=== PATIENT | female | born 1980 | race Caucasian/White ===

== ENCOUNTER → 2017-09-21 | Outpatient (REF) | payer MEDICARE ==
[2017-09-21 14:13] LABS: FOLATE 17.2 NG/ML; VITAMIN B12 LEVEL 490 PG/ML
[2017-09-21 14:21] LABS: ESTIMATED AVERAGE GLUCOSE 344 MG/DL (60-110); HEMOGLOBIN A1c 13.6 %
[2017-09-21 14:26] LABS: FREE T4 1.23 NG/DL (0.76-1.46); TOTAL PROTEIN 8.7 GM/DL (6.4-8.2)
[2017-09-25 14:13] LABS: ALBUMIN % 49.7 % (55.8-66.1); ALPHA-1-GLOBULIN % 4.3 % (2.9-4.9); BETA-1-GLOBULINS % 9.5 % (4.7-7.2); BETA-2-GLOBULINS % 10.9 % (3.2-6.5); GAMMA GLOBULIN % 12.6 % (11.1-18.8)
[2017-09-25 14:14] LABS: ALBUMIN 4.32 GM/DL (3.29-5.55); ALPHA-1-GLOBULINS 0.37 GM/DL (0.17-0.41); ALPHA-2-GLOBULINS 1.13 GM/DL (0.42-0.99); BETA-1-GLOBULINS 0.83 GM/DL (0.28-0.60); BETA-2-GLOBULINS 0.95 GM/DL (0.19-0.55)
[2017-09-26 00:07] LABS: METHYLMALONIC ACID 157 nmol/L (0-378); VITAMIN B1 LEVEL WHOLE BLOOD 169.9 nmol/L (66.5-200.0); VITAMIN B6,PYRIDOXAL PHOSPHATE 13.2 ug/L (2.0-32.8); VITAMIN E LEVEL 4.1 mg/L (5.3-16.8)
== END ==
LOC: M LABNEURO 10:26
DX: E11.9 Type 2 diabetes mellitus without complications (principal); E07.9 Disorder of thyroid, unspecified; R20.8 Other disturbances of skin sensation
CPT/HCPCS: 82746